=== PATIENT | male | born 1990 | race Caucasian/White ===

== ENCOUNTER 2017-12-31 22:30 | Emergency (ER) | payer OTHER ==
[~2017-12-31] VITALS: Ht 182.9 cm; Wt 83.9 kg
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
[2017-12-31] MEDS ORDERED: SILVER SULFADIAZINE CREAM 25 GM TUBE ONE (22:46)
[2017-12-31] MEDS ORDERED: TDAP [DIPH/PERTUSSIS/TET] 0.5 ML VIAL IM ONE ×2 (22:46→23:00)
[2017-12-31 22:55] VITALS: BP 130/80
[2017-12-31] MEDS ORDERED: SILVER SULFADIAZINE CREAM 25 GM TUBE TP ONE (23:00)
== END 2017-12-31 22:56 | disposition home or self-care (01) ==
LOC: ER 22:34
DX: T22.211A Burn of second degree of right forearm, initial encounter (principal); X19.XXXA Contact with other heat and hot substances, initial encounter; Y93.89 Activity, other specified; Y92.89 Other specified places as the place of occurrence of the external cause; Y99.8 Other external cause status
CPT/HCPCS: 16000; 90471; 90715; 99284; A4606; Z7610